=== PATIENT | female | born 1985 | race Two or more races ===

== ENCOUNTER 2025-04-26 16:34 | Emergency (ER) | payer MEDICAID, SELFPAY ==
[2025-04-26 16:39] VITALS: BP 150/96; PULSE 67; RESP 18; TEMP 36.8; O2SAT 100; BMI 22.4
--- NOTE | 2025-04-26 16:48 | XR_ITS ---
Examination: Fingers, right hand first digit 3 views Technique: AP, oblique, lateral views right hand first digit. Exam date and time: April 26, 2025 1647 hours INDICATIONS: Injury to the hand 3 days ago with first digit pain. FINDINGS: Adequate bone density. No fracture or dislocation IMPRESSION: No fracture or dislocation
--- NOTE | 2025-04-26 16:49 | PD.EDHAND ---
Upper Extremity Injury RME/HPI General Chief Complaint: Hand/Wrist Problems Stated Complaint: Right thumb smashed in car door Time Seen by Provider: 04/26/25 16:39 Arrival date/time: 04/26/25 16:34 RME / HPI RME / HPI narrative: 39-year-old female patient came in for evaluation regarding right thumb pain. Patient sustained an injury to the right after the right thumb got smashed on a car door 4 days ago. Went to PCP, and was referred here for x-ray. Denies any other injury. Patient sustained a subungual hematoma on the right thumb Related Data Allergies Allergy/AdvReac Type Severity Reaction Status Date / Time No Known Drug Allergies Allergy Verified 04/26/25 16:37 Review of Systems Review of Systems Narrative Review of Systems: Review of system reviewed and within normal limits except mentioned in HPI ED Exam Narrative Physical exam: VITAL SIGNS: Reviewed. GENERAL APPEARANCE: Alert and interactive, follows commands, no acute distress, HEAD AND FACE: Non-traumatic. ENT: PERRL, pink conjunctivitis, eyelid no trauma, Mucous membrane moist. NECK: Supple, nontender, no nuchal rigidity. GENITAL: Deferred. NEUROLOGICAL: Gross motor function intact sensory function intact, Appropriate for age. MUSCULOSKELETAL: low back nontender, full range of motion. EXTREMITIES: Right thumb swelling, positive subungual hematoma no deformity no skin breakdown, full range of motion. Distal neurovascular status was intact SKIN: Color pink, dry, no rash, no lacerations, no abrasions, no contusions. LYMPHATICS: Deferred. Course Quality Measures none Orders Category Date Time Status XR finger RT min 2V Stat Exams 04/26/25 16:48 Completed Ibuprofen Tab [Motrin Tab] Med 04/26/25 16:48 Discontinued 600 mg PO X1 ONE Vital Signs Vital signs: Vital Signs Temperature 98.2 F 04/26/25 16:39 Pulse Rate 67 04/26/25 16:39 Respiratory Rate 18 04/26/25 16:39 Blood Pressure 150/96 H 04/26/25 16:39 Pulse Oximetry (%) 100 04/26/25 16:39 Oxygen Delivery Method Room Air 04/26/25 16:39 PROCEDURES: Nail Trephination Time out: Yes Location (finger): thumb Sterile prep: betadine Method of drainage: nail cautery Procedure successful: Yes Patient tolerated procedure: well Complications: other (None) Extremity Injury MDM Narrative MDM Narrative:: 39-year-old female patient came in for evaluation regarding right thumb pain. Patient sustained an injury to the right after the right thumb got smashed on a car door 4 days ago. Went to PCP, and was referred here for x-ray. Denies any other injury. Patient sustained a subungual hematoma on the right thumb X-ray of the finger came back unremarkable results discussed with the patient. Trephination was done by me see procedure notes patient tolerated the procedure well. Significant amount of subungual hematoma was released. Patient data External records reviewed:: None Clinical information provided by:: patient Social determinants that could affect healthcare access:: none Patient has the following chronic illnesses:: Plan How is presenting disease/condition affected by chronic disease/condition?: no chronic disease Evaluation data The following diagnostics were reviewed and interpreted by me:: radiology exam(s) Lab and/or radiology exams considered but not ordered:: None Interpretation Summary: See results MDM Medications / Prescriptions Medications or Prescriptions considered but not ordered:: None Medication administrations:: Medication Administration History Discontinued Medications Ibuprofen (Ibuprofen Tab 600 Mg Tablet) 600 mg PO X1 ONE Stop: 04/26/25 16:49 Last Admin: 04/26/25 16:51 Dose: 600 mg Documented By: ES Farnsworth Consultations Consultation(s) initiated? (list below): No Diagnosis Upper Extremity Injury Differential Diagnosis: finger sprain, dislocation of finger and other (Subungual hematoma finger) Most likely diagnosis given after review of the tests above:: Subungual hematoma thumb Admission Indicated Admission indicated?: not indicated Admission Request Was there a request for admission?: No Disposition Plan Disposition Plan: Discharge Discharge Attestation Discharge Attestation: The patient and all family members were given an opportunity to ask questions and understood the discharge instructions. Discharge instructions specifically effects, indications for sooner follow up or return to the emergency department, and the expected course of current diagnosis. Patient condition: Stable Discharge Plan Plan Patient Disposition: HOME (Self Care) Discharge Disposition comment: Stable Prescriptions/Referrals Referrals: Kristie Ly FNP [Primary Care Provider] - In 1 week Problem List Clinical Impression: Hematoma, subungual, finger Patient/Caregiver Discharge Instructions Discharge Activity: activity as tolerated Education Materials: ED Subungual Hematoma Additional Instructions: Thank you for the opportunity for serving you today. You are stable for discharged . You are advised to: Follow-up with your PCP in 1 to 2 days Return to ED for worsening of symptoms Increase oral fluids Take [id number] Tylenol or Motrin as needed for pain Daily dressing with bacitracin as needed Print Language: Senegalese Stand Alone Forms: April Award Info., Patient Portal Info Letter PA/KHARI Supervising Physician AKIL/KHARI Supervising Physician: MD Radha
[2025-04-26] MEDS: IBUPROFEN TAB 600 MG TABLET PO (16:51)
== END 2025-04-26 17:55 | disposition home or self-care (01) ==
PROVIDERS: Emergency Provider Emergency Medicine; PCP Registered Nurse
DX: S60.111A Contusion of right thumb with damage to nail, initial encounter (principal); W23.0XXA Caught, crushed, jammed, or pinched between moving objects, initial encounter; Y92.810 Car as the place of occurrence of the external cause
CPT/HCPCS: 11740; 73140; 99283; A9270